=== PATIENT | male | born 1975 | race Caucasian/White ===

== ENCOUNTER → 2017-12-05 | Outpatient (CLI) | payer OTHER ==
[~2017-12-05] MED LIST: ADVIL200 M3 PO; LOSARTAN POTAS100 MG PO; PROTONIX 20 MG20 M1 PO
== END ==
LOC: M.MRI 14:05
DX: M47.896 Other spondylosis, lumbar region (principal)

== ENCOUNTER → 2017-12-21 | Outpatient (CLI) | payer OTHER ==
--- NOTE | 2018-01-24 13:42 | PAINCON ---
[address] [address] PAIN MANAGEMENT CONSULTATION Name: DANOANDRES Room: [facility] Marlon#: [id number] Admission: 12/21/17 Attend Phys: Antwon Nevarez MD Discharge: Date of : 79 Report #: [id number] THIS REPORT FOR: //name// CC: Antwon Yap DO DATE OF SERVICE: 12/26/2017 CHIEF COMPLAINT: Low back pain with pain radiating down into the back of my leg. I had an epidural steroid injection in 2010 that was helpful. I took a Medrol Dosepak and it is about 50% better. FOLLOWUP HISTORY: The patient is a 42-year-old gentleman, who has been referred to the pain clinic for evaluation. He has a history of an annular tear in his lumbar disk. He has experienced pain and discomfort in the past. Underwent an epidural steroid injection in 2010. Noticed some improvement in this pain. He now has noted some worsening of pain and discomfort in the lower portion of his back with some pain that radiates down the buttocks and down into his leg. The patient states he was playing with his daughters and he began to notice pain and discomfort, which is similar to that which he has experienced in about 2010. He describes it as a pressure. He has been experiencing some shooting pain down the lower portion of his back. He also feels pain in his sides. Notes that his pain can be exacerbated by prolonged sitting. He has tried nonsteroidal anti-inflammatory medications over the counter. Continues to use ibuprofen 200 mg b.i.d. The patient states that he is feeling pain very similar to that which he underwent an epidural steroid injection and had many years of improvement. The patient states that he has recently had an MRI of his low back and was told that he has an area of stenosis. ALLERGIES: No known drug allergies. CURRENT MEDICATIONS: Ibuprofen 200 mg, 400 dose b.i.d., losartan 100 mg daily, Protonix 20 mg daily. PAST MEDICAL HISTORY: 1. GERD. 2. Hypertension. 3. Peptic ulcer. 4. History of rectal bleeding. 5. History of spinal stenosis. 6. Bulging lumbar disk. 7. Annular tear of the lumbar disks. PAST SURGICAL/PROCEDURE HISTORY: Colonoscopy was in 2016 and vasectomy in 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 He is working at this juncture. REVIEW OF SYSTEMS: Questionnaire reveals generally good health, fever, night sweats, fatigue, weakness, wears glasses, frequent diarrhea, rectal bleeding and stool, peptic ulcer stomach, musculoskeletal, back pain, muscle cramping, varicose veins, and insomnia. PAIN CLINIC ASSESSMENT: 1. History of osteoarthritis/rheumatoid arthritis. The patient is not being treated for osteoarthritis or rheumatoid arthritis. 2. Height 5 feet 7 inches, weight 276 pounds, BMI is 27.6. 3. Vital Signs: Blood pressure 151/97, heart rate 70, respiratory rate 16, room air saturation 95%, temperature 98.2. Pain intensity 4/10. 4. Fall risk. The patient has not fallen in the last 3 months. 5. The patient is not on a blood thinner. 6. History of hypertension. The patient is being treated for hypertension. 7. Opioids greater than 6 weeks. The patient is not on an opioid regimen. 8. Risk assessment tool, the patient is a low risk for opioid use. 9. Functional assessment tool. The patient rates the pain impact score as 41/70 showing a moderate amount of impact on activities of daily living secondary to pain. 10. Recreational drug use. The patient denies use of recreational drugs. 11. Tobacco: The patient denies use of smoking tobacco and the patient uses vaporized tobacco. 12. Alcohol: The patient denies use of alcoholic beverages regularly. Drinks only on weekend. LABORATORY DATA: 1. MRI of the lumbar spine dated 12/05/2017 shows L1-L2 broad-based posterior disk bulge and bilateral facet hypertrophy. No significant canal stenosis or foraminal narrowing. 2. L3-L4 mild bilateral facet hypertrophy. No significant central stenosis or neural foraminal narrowing. 3. L3-L4 broad-based posterior disk bulge and bilateral facet hypertrophy. No significant stenosis or neural foraminal narrowing. 4. L4-L5 posterior disk bulge with small annular rent, bilateral facet hypertrophy. 5. L4-L5 broad-based posterior disk bulge, bilateral facet hypertrophy. There is a small 13 mm Tarlov cyst at S2 level. Mild degenerative changes described with most significant findings at L4-L5 level, where a small broadbased posterior disk bulge with annular rent is demonstrated. PHYSICAL EXAM: GENERAL: The patient is well-developed, well-nourished white male. He appears his stated age. He is alert and oriented x 3. [place] [address] PAIN MANAGEMENT CONSULTATION Name: ANDRES MATSON Room: [facility]#: [id number] Admission: 12/21/17 Attend Phys: Antwon Nevarez MD Discharge: Date of : 77 Report #: [id number] HEENT: Normocephalic, atraumatic. Extraocular eye muscles intact. Sclerae non-injected. Hearing within normal limits. Mucous membranes are moist. NECK: Without adenopathy or bruits. Good range of motion, left and right lateral bending, left and right lateral tilting flexion and extension of the neck were not problematic. HEART: Regular rate. S1, S2. LUNGS: Clear to auscultation without rales or rhonchi. ABDOMEN: Nontender. MUSCULOSKELETAL: Without significant scoliosis, slight lordosis, or kyphosis. Upper extremity muscle strength is judged to be 5/5 for the major muscle groups in the upper extremity without sensory changes. Muscle bulk is symmetrical. Lower extremity, the patient has pain and discomfort in the L4-L5 paraspinous areas as well as pain and discomfort in the radiating down into the lower back and left L5-S1 distribution. The patient walks with an antalgic gait. Drew's sign was negative. Straight leg raise positive left. IMPRESSION: 1. History of lumbar radiculopathy 2010, improved after epidural steroid injection with recurrence of pain after playing with his daughters. 3. Annular tear of the lumbar disk. 4. Bulging lumbar disk. RECOMMENDATIONS: We discussed treatment options with the patient. Risks and benefits of an epidural steroid injection were again discussed. Possible complications of the procedure were reviewed. The patient has had a similar course of pain and discomfort in about 2010. He underwent an epidural steroid injection and has done quite well into this time. The patient started to play with his daughters and noted some worsening of pain and a similar discomfort which he experienced back in , which improved with an epidural steroid injection. MRI shows a L4-L5 and L5-S1 pain and discomfort, which is radiating down the posterior portion of the patient's leg. He will return to the pain clinic at which time we will perform an epidural steroid injection to help lessen his pain. Risks and benefits of the procedure were discussed. They include but are not limited to infection, increased muscle soreness headache, bleeding, worsening of pain, nerve damage, paralysis. We would like to thank you for letting us participate in his care. We hope he continues to improve. <ELECTRONICALLY SIGNED> By: Antwon Nevarez MD 01/24/18 1342 1417 [id number]. Randell Nevarez MD /[facility]
== END ==
LOC: M.PC 01:37
DX: M51.36 Other intervertebral disc degeneration, lumbar region (principal); I10 Essential (primary) hypertension

== ENCOUNTER → 2018-01-16 | Outpatient (CLI) | payer OTHER ==
--- NOTE | 2018-01-24 14:05 | PAINCON ---
[address] [address] PAIN MANAGEMENT CONSULTATION Name: DANOANDRES Room: [facility] Marlon#: [id number] Admission: 01/16/18 Attend Phys: Antwon Nevarez MD Discharge: Date of : 79 Report #: [id number] THIS REPORT FOR: //name// CC: Antwon Yap DATE OF SERVICE: 01/16/2018 FOLLOWUP COMPLAINT: Here for an epidural steroid injection. HISTORY OF PRESENT ILLNESS: The patient is a 42-year-old gentleman who has been seen in the pain clinic because of lumbar radiculopathy. The patient has a history of low back pain. He has a history of an annular tear in his lower lumbar disc. He underwent an epidural steroid injection in 2010. He notes improvement at that time. He has now had a recurrence of pain and discomfort, which is radiating down the lower portion of his back down into his buttocks and the posterior portion of his leg. He has noticed activities of daily living be more problematic. 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 Feels that this pain is very similar to that which he has experienced in 2010, which improved after an epidural steroid injection. He has tried nonsteroidal anti-inflammatory medications, which were [id number]. He continues to use ibuprofen 200 mg. He has returned today for an epidural steroid injection with hopes of improvement. He has been told that he has stenosis in his low back area. ALLERGIES: No known drug allergies. CURRENT MEDICATIONS: Ibuprofen 200 mg, total dose 400 mg b.i.d.; losartan 100 mg daily; and Protonix 20 mg daily. PAIN CLINIC ASSESSMENT: 1. History of osteoarthritis/rheumatoid arthritis. The patient is not being treated for osteoarthritis or rheumatoid arthritis. 2. Height 5 feet 7 inches, weight 173 pounds, BMI is 27. 3. VITAL SIGNS: Blood pressure 142/83, heart rate 78, respiratory rate 16, room air saturation 98%, and temperature 98.6. 4. Fall risk. The patient has not fallen in the last 3 months. 5. Pain score 4-5/10. 6. Blood thinner. The patient is not on a blood thinner. 7. History of hypertension. The patient is being treated for hypertension. 8. Opioid therapy greater than 6 weeks. The patient is not on an opioid regimen. 9. Risk assessment tool. 10. Functional assessment tool. 11. Recreational drug use. 12. Tobacco use. The patient [place] [address] PAIN MANAGEMENT CONSULTATION Name: ANDRES MATSON Room: [facility]#: [id number] Admission: 01/16/18 Attend Phys: Antwon Nevarez MD Discharge: Date of : 79 Report #: [id number] 13. Alcohol: The patient denies use of alcoholic beverages. PHYSICAL EXAMINATION: GENERAL: The patient is a well-developed, well-nourished white male. Appears his stated age. He is alert and oriented x 3. Speech is fluent. HEENT: Normocephalic, atraumatic. Extraocular eye muscles are intact. Sclerae not injected. Hearing within normal limits. Mucous membranes are moist. NECK: Without adenopathy or bruits. Good range of motion left and right lateral bending, left and right lateral tilting and extension were not problematic. HEART: Regular rate. S1, S2. LUNGS: Clear to auscultation without rales or rhonchi. ABDOMEN: Nontender. MUSCULOSKELETAL: Without significant scoliosis, kyphosis or lordosis. Upper extremity muscle strength 5/5 without sensory changes with symmetrical bulk. Lower extremity, the patient has pain and discomfort down in his low back area with pain radiating down into the left L5-S1 distribution. The patient walks with an antalgic gait. Straight leg raise positive on the left. IMPRESSION: 1. History of lumbar radiculopathy in 2010, improved after epidural steroid injection with recurrence of pain while playing with daughters. 2. Annular tear of the lumbar discs in the lower lumbar area. 3. Bulging discs. RECOMMENDATIONS: We discussed treatment options with the patient. Risks and benefits of an epidural steroid injection were again reviewed. The patient underwent an epidural steroid injection with similar complaints in 2010 and gleaned significant benefit. At this juncture, we will repeat the treatment course. He has returned today for treatment. He continues to take ibuprofen 400 mg b.i.d. We will proceed with an injection. Risks and benefits of the procedure were again reviewed. They include but are not limited to infection, increased muscle soreness, headache, bleeding, worsening of pain, spinal infection, improvement in pain or no improvement of pain. PROCEDURE NOTE: The patient was taken to the procedure area. He was placed in the prone position on the examination table. His back was sterilely prepped. Fluoroscopy was used. Using fluoroscopy with an anterior, posterior as well as the lateral viewing to correctly place the medication at the left L5 paraspinous area using a 17-gauge Tuohy. This area had been sterilely prepped with Betadine and infiltrated with 0.25% bupivacaine. A total of 80 mg Depo-Medrol, 40 mg triamcinolone and 2 mL of 0.25% bupivacaine was injected. The patient tolerated the procedure well. There were no complications. He remained in the pain clinic for an appropriate amount of time. He will follow up in the future as needed. The patient was given a script for returning to work. He will [place] [address] PAIN MANAGEMENT CONSULTATION Name: ANDRES MATSON Room: [facility]#: [id number] Admission: 01/16/18 Attend Phys: Antwon Nevarez MD Discharge: Date of : 79 Report #: [id number] We would like to thank you for letting us participate in his care. We hope he continues to improve. <ELECTRONICALLY SIGNED> By: Antwon Nevarez MD 01/24/18 1405 1451 1754N. Randell Nevarez MD /nt
== END | disposition home or self-care (01) ==
LOC: M.PC 02:00
DX: M54.16 Radiculopathy, lumbar region (principal); Z79.899 Other long term (current) drug therapy; M19.90 Unspecified osteoarthritis, unspecified site; M06.9 Rheumatoid arthritis, unspecified; Z79.01 Long term (current) use of anticoagulants; I10 Essential (primary) hypertension; F11.20 Opioid dependence, uncomplicated; Z68.27 Body mass index [BMI] 27.0-27.9, adult

== ENCOUNTER → 2018-03-27 | Outpatient (CLI) | payer OTHER ==
--- NOTE | 2018-03-30 08:37 | PAINCON ---
[address] [address] PAIN MANAGEMENT CONSULTATION Name: LEANNMELIANDRES Room: [facility] Mason#: [id number] Admission: 03/27/18 Attend Phys: Antwon Nevarez MD Discharge: Date of : 79 Report #: [id number] THIS REPORT FOR: //name// CC: Antwon Yap DATE OF SERVICE: 03/27/2018 FOLLOWUP COMPLAINT: Pain has recurred. It is still quite problematic. He is radiating down into the left leg and the bottom of my foot. FOLLOWUP HISTORY: The patient is a 43-year-old gentleman who has been seen in the pain clinic because of lumbar radiculopathy. He has undergone epidural steroid injections. He has gleaned some benefit from these. He has been having low back pain since 2005. Noticed that this pain has increased in intensity. He has been driving more. He has increased his workload. He has noticed 70-80% relief from his pain for a period of time. He feels that physical therapy could prove helpful as well. The patient has been quite dizzy. 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 He helped his brother move about 500 miles from [place] to [place] in [place]. After they moved his brother's household he helped his brother unload the truck. He was doing reasonably well until a few days ago. 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 He noticed worsening of pain and discomfort in the pain level escalated to 8-9 where it remains at this juncture. He finds that Tylenol provides more relief than ibuprofen are some other nonsteroidal anti-inflammatory medications. ALLERGIES: No known drug allergies. CURRENT MEDICATIONS: Ibuprofen 100 mg b.i.d., losartan 100 mg daily, Protonix 20 mg daily and Tylenol 325 mg tablets. PAIN CLINIC ASSESSMENT: 1. History of osteoarthritis/rheumatoid arthritis. The patient is not being treated for osteo or rheumatoid arthritis. 2. Height 5 feet 7 inches, weight 173 pounds, BMI is 28. 3. Vital signs: Blood pressure 146/94, heart rate 74, respiratory rate 16, room air saturation 97% and temperature 97.6. 4. Pain intensity score 04/23. 5. Fall risk. The patient has not fallen in the last 3 months. 6. Blood thinner. The patient is not on a blood thinning medication. 7. History of hypertension. The patient is being treated for hypertension. 8. Opioid therapy greater than 6 weeks. 9. The patient is not being treated for opioid with opioid medicines for greater than 6 weeks. 10. Risk assessment tool overuse of opioid medication. 11. [place] [address] PAIN MANAGEMENT CONSULTATION Name: ANDRES MATSON Room: [facility] Marlon#: [id number] Admission: 03/27/18 Attend Phys: Antwon Nevarez MD Discharge: Date of : 79 Report #: [id number] 12. Recreational drug use. The patient denies recreational drug use. 13. Tobacco: The patient denies use of tobacco. 14. Alcohol: The patient drinks alcohol every other day. PHYSICAL EXAMINATION: GENERAL: The patient is a well-developed, well-nourished white male. Appears his stated age. He is alert and oriented x 3. His speech is fluent. HEENT: Normocephalic, atraumatic. Extraocular eye muscles intact. Sclerae nonicteric. Hearing is within normal limits. Mucous membranes are moist. NECK: Without adenopathy or bruits. Good range of motion left and right lateral bending. HEART: Regular rate, normal S1, S2. LUNGS: Clear to auscultation without rhonchi or rales. ABDOMEN: Nontender. MUSCULOSKELETAL: Without significant scoliosis, kyphosis or lordosis. Upper extremity muscle strength is 5/5 without sensory changes and with symmetry. Lower extremity, the patient has pain and discomfort in the low back area with pain does radiate down in the L5-S1 distribution. This involves the low back area and affects the patient's gait. He is walking with an antalgic gait. Straight leg raise positive on the left. IMPRESSION: 1. History of low back pain since 2005 and epidural steroid injection in 2010 with improvement. 2. Annular tear of the lumbar disks in the lower lumbar area. 3. Bulging disk. RECOMMENDATIONS: We discussed treatment options with the patient. Risks and benefits of an epidural steroid injection were again reviewed. Possible complications of the procedure were discussed. They could include but are not limited to infection, increased muscle soreness, headaches, bleeding, worsening of pain, no improvement in pain, paralysis. The patient elects to proceed. PROCEDURE NOTE: The patient was taken to the examination area. He was assisted in getting on the table. He was placed in the prone position. Fluoroscopy using anterior, posterior as well as lateral viewing were enacted. A pillow was placed under the patient's abdomen to improve positioning. A 0.25% bupivacaine was infiltrated in the area of the L5-S1 distribution on the left paracentral area. A 17-gauge Tuohy with loss of resistance technique was used to gain access to the epidural space. There was no CSF, heme or paresthesia. A total of 80 mg Depo-Medrol, 40 mg triamcinolone and 2 mL of 0.25% bupivacaine was injected. The patient tolerated the procedure well. Total of 9 seconds fluoroscopy time was used. The patient's pain decreased from 9 to 7 at the time of discharge. He will follow up in the future as needed. [place] [address] PAIN MANAGEMENT CONSULTATION Name: HAILECarlosANDRES Room: [facility]#: [id number] Admission: 03/27/18 Attend Phys: Antwon Nevarez MD Discharge: Date of : 79 Report #: [id number] participate in physical therapy 3 days a week for 3 weeks. He will call us if he has any problems with his medications or from the procedure. <ELECTRONICALLY SIGNED> By: Antwon Nevarez MD 03/30/18 0837 [id number] 0631N. Randell Nevarez MD /nt
== END | disposition home or self-care (01) ==
LOC: M.PC 03-20 05:00
DX: M51.16 Intervertebral disc disorders with radiculopathy, lumbar region (principal); G89.29 Other chronic pain; I10 Essential (primary) hypertension; Z79.899 Other long term (current) drug therapy

== ENCOUNTER → 2018-05-01 | Outpatient (CLI) | payer OTHER ==
--- NOTE | 2018-05-28 10:00 | PAINCON ---
[address] [address] PAIN MANAGEMENT CONSULTATION Name: LEANNMELIANDRES [facility]: [facility] Mason#: [id number] Admission: 05/01/18 Attend Phys: Antwon Nevarez MD Discharge: Date of : 79 Report #: [id number] THIS REPORT FOR: //name// CC: Antwon Yap DATE OF SERVICE: 05/01/2018 FOLLOWUP COMPLAINT: The pain is improved since the last 2 injections, but 75% better. FOLLOWUP HISTORY: The patient is a 43-year-old gentleman who has been followed in the pain clinic because of lumbar radiculopathy. He has undergone 2 epidural steroid injections. He feels his pain is about 75% better. Overall, he still has some pain and discomfort, which radiates down into his left leg. Notes some numbness and tingling. He would like to proceed with the third epidural steroid injection at this juncture. He has had no complications from their use. Feels overall that things are going better. His activity level continues to increase without increasing pain. He finds that ibuprofen p.r.n. is helpful. Also takes Tylenol p.r.n. ALLERGIES: No known drug allergies. CURRENT MEDICATIONS: Ibuprofen 200 mg b.i.d., losartan 100 mg daily, Protonix 20 mg and Tylenol 325 mg. PAIN CLINIC ASSESSMENT: 1. History of osteoarthritis/rheumatoid arthritis. The patient is not being treated for osteoarthritis or rheumatoid arthritis. 2. Height 5 feet 7 inches, weight 167 pounds and BMI is 26. 3. Vital signs: Blood pressure 143/93, heart rate 78, respiratory rate 18, room air saturation 97% and temperature is 97.7. 4. Pain intensity 3-4/10. 5. Fall history: The patient has not fallen in the last 3 months. 6. Blood thinner. The patient is not on a blood thinning medication. 7. History of hypertension. The patient is not being treated for hypertension. 8. Opioid therapy greater than 6 weeks. The patient is on opioid therapy. 9. Risk assessment tool, low for use of opioid medication. 10. Functional assessment tool. 11. Recreational drug use. The patient denies use of recreational drugs. 12. Tobacco: The patient denies use of tobacco. 13. Alcohol: The patient denies use of alcoholic beverages on a regular basis. PHYSICAL EXAMINATION: GENERAL: The patient is a well-developed, well-nourished white male. Appears his stated age. He is alert and oriented x 3. Speech [place] [address] PAIN MANAGEMENT CONSULTATION Name: ANDRES MATSON Room: [facility]#: [id number] Admission: 05/01/18 Attend Phys: Antwon Nevarez MD Discharge: Date of : 79 Report #: [id number] HEENT: Normocephalic, atraumatic. Extraocular eye muscles intact. Sclerae nonicteric. Hearing is within normal limits. Mucous membranes are moist. NECK: Without adenopathy or bruits. Good range of motion left and right lateral bending. HEART: Regular rate, normal S1, S2. LUNGS: Clear to auscultation without rhonchi or rales. ABDOMEN: Nontender, without organomegaly. MUSCULOSKELETAL: Without significant scoliosis, kyphosis or lordosis. Upper extremity muscle strength 5/5 without sensory changes. Lower extremity, the patient has some pain and discomfort radiating down the left L5-S1 area with some numbness, weakness involving the left leg. He has noted some decreasing in pain. Walks with a left antalgic gait today. Straight leg raise, less positive, but slightly on the left. IMPRESSION: 1. History of low back pain since 2005 an epidural steroid injections in 2010 with improvement. 2. Annular tear of the lumbar disks in the lumbar area. 3. Bulging disk. RECOMMENDATIONS: We discussed treatment options with the patient. They include epidural steroid injection or more conservative treatment. The patient would like to proceed with another injection. The possible complications include, but are not limited to infection, increased muscle soreness, headache, bleeding, worsening pain, nerve trauma with paralysis, spinal headache. The patient wishes to proceed. PROCEDURE NOTE: The patient was taken to the procedure area. He was help to get up on the examination table. Fluoroscopy using anterior, posterior as well as lateral viewing were implemented. The patient's back was sterilely prepped with a Betadine solution. 0.25% bupivacaine was infiltrated. A left paracentral advancement of the needle was undertaken. A total of 80 mg Depo-Medrol, 40 mg triamcinolone and 2 mL of 0.25% bupivacaine was injected. The patient tolerated the procedure well. Approximately 9 seconds fluoroscopy time was used. The patient remained in the pain clinic for an appropriate amount of time. He will follow up in the future as needed. We would like to thank you for letting us participate in his care. We hope he continues to improve. <ELECTRONICALLY SIGNED> By: Antwon Nevarez MD 05/28/18 1000 [id number] 1010N. Randell Nevarez MD /nt
== END | disposition home or self-care (01) ==
LOC: M.PC 05:52
DX: M51.16 Intervertebral disc disorders with radiculopathy, lumbar region (principal); M51.26 Other intervertebral disc displacement, lumbar region; G89.29 Other chronic pain; Z79.899 Other long term (current) drug therapy; Z98.890 Other specified postprocedural states; Z79.891 Long term (current) use of opiate analgesic